=== PATIENT | female | born 1990 | race Two or more races ===

== ENCOUNTER 2023-12-10 10:53 | Emergency (ER) | payer OTHER ==
[~2023-12-10] VITALS: Ht 165.1 cm; Wt 77.1 kg
[2023-12-10] MEDS ORDERED: DIPHENHYDRAMINE HCL 50 MG/ML VIAL 1ML IM STA (11:58)
[2023-12-10] MEDS ORDERED: METHYLPREDNISOLONE SOD SUCC 125 MG VIAL IM STA (11:58)
[2023-12-10] MEDS ORDERED: DIPHENHYDRAMINE HCL 50 MG/ML VIAL 1ML ONE (12:16)
[2023-12-10] MEDS ORDERED: METHYLPREDNISOLONE SOD SUCC 125 MG VIAL ONE (12:17)
[2023-12-10] MEDS ORDERED: WATER FOR INJ.,BACTERIOSTATIC 30 ML VIAL IJ ONE (12:19)
== END 2023-12-10 12:43 | disposition home or self-care (01) ==
LOC: ER 10:55
DX: L30.9 Dermatitis, unspecified (principal); Z88.0 Allergy status to penicillin; Z91.013 Allergy to seafood